=== PATIENT | female | born 2000 | race Hispanic/Latino ===

== ENCOUNTER 2023-04-13 07:10 | Inpatient (IN) | payer SELFPAY ==
[2023-04-13] VITALS (32 sets, daily range): BP systolic 91–129; BP diastolic 52–86; PULSE 75–110; TEMP 36.2–37.1; O2SAT 96–100; BMI 39.7
[2023-04-13] MEDS: Lactated Ringers 1,000 ML 50 ML IV (08:00)
[2023-04-13 08:37] LABS: Absolute Neutrophil Count 4.9 X10^3/uL (2.0-7.7); Basophil# 0.04 X10^3/uL; Basophil% 0.5 % (0-1); Eosinophil# 0.18 X10^3/uL; Eosinophils% 2.4 % (0-5); Hematocrit 38.8 % (37-47); Hemoglobin 13.1 g/dL (12.0-15.0); Lymphocyte % 24.9 % (19-41); Mean Corp Hgb Conc 33.8 g/dL (32-36); Mean Corpuscular Hgb 31.6 pg (27.0-32.0); Mean Corpuscular Volume 93.5 fL (81-99); Mean Platelet Vol. 12.2 fl (6.2-12.0); Monocyte# 0.53 X10^3/uL; NRBC Flagged by Analyzer 0 % (0-5); Neutrophil # 4.87 X10^3/uL (2.7-7.7); Neutrophil % 63.9 % (47-70); Platelet Count 169 K/mm3 (150-450); RBC Distribution Width CV 13.4 % (11.6-14.6); RBC Distribution Width SD 45.6 fl (35.1-43.9); Red Blood Count 4.15 M/mm3 (4.2-5.4); White Blood Count 7.6 K/mm3 (4.4-11.0)
[2023-04-13 09:14] LABS: Syphilis Antibodies Non-reactive
[2023-04-13] MEDS: 0.9% Normal Saline Single 100 ML IV.SOLN. INTRA-UTER (09:39)
[2023-04-13] MEDS: Oxytocin 15 Units/NS 250ml 15 UNITS/250 ML IV.SOLN 2 UNITS IV (10:00)
[2023-04-13 12:57] LABS: Amphetamine Urine VISTA NEGATIVE (<1000 ng/mL); Barbiturate Urine VISTA NEGATIVE (< 200 ng/mL); Benzodiazepine Urine VISTA NEGATIVE (< 200 ng/mL); Cocaine Urine VISTA NEGATIVE (< 300 ng/mL); Ecstacy Urine VISTA NEGATIVE (< 500 ng/mL); Methadone Urine VISTA NEGATIVE (< 300 ng/mL); PCP Urine VISTA NEGATIVE (< 25 ng/mL); THC Urine VISTA NEGATIVE (< 50 ng/mL); Vista UDS pH Range 6
--- NOTE | 2023-04-13 13:20 | PCM.HP.OB ---
HPI - General General Date of Admission: 04/13/23 HPI Narrative KOBE EDWARDS, is a 22 F who presents Maternal Data Information Final VICKI: 04/18/23 Gestational age: 39&2 PFSH PFS Medical History (Updated 04/13/23 @ 13:[address] Rodney Alba MD) Chlamydia infection affecting Home Medications [id number] 1 mg tablet 1 tab PO DAILY Check with primary doctor 04/13/23 [History Last Taken Unknown] Allergy/AdvReac Type Severity Reaction Status Date / Time No Known Allergies Allergy Verified 04/13/23 08:27 Social History Smoking Status: Never smoker History Elective abortions Hx Para 1 Spontaneous abortions Hx # Term Pregnancies Ectopic pregnancies Hx # Pregnancies Multiple births # of living children NST FHR Rate Baby A Baseline: 140 Variability:: Moderate Decelerations:: None Uterine Activity:: Not tracing well Vital Signs Vital Signs Vital Signs: 04/13/23 07:42 04/13/23 07:42 04/13/23 07:42 Temperature 97.3 F L Temperature Source Pulse Rate 76 Blood Pressure 128/84 H BP Systolic 128 BP Diastolic 84 04/13/23 07:42 04/13/23 09:29 04/13/23 09:29 Temperature Temperature Source Temporal Pulse Rate 80 Blood Pressure 107/54 L BP Systolic 107 BP Diastolic 54 04/13/23 09:29 04/13/23 09:29 04/13/23 10:39 Temperature 97.2 F L Temperature Source Temporal Pulse Rate Blood Pressure 108/61 BP Systolic 108 BP Diastolic 61 04/13/23 10:39 04/13/23 12:04 04/13/23 12:05 Temperature Temperature Source Temporal Pulse Rate 82 Blood Pressure 93/58 L BP Systolic 93 BP Diastolic 58 04/13/23 12:05 04/13/23 12:04 Temperature 97.2 F L Temperature Source Pulse Rate 90 Blood Pressure BP Systolic BP Diastolic Weight Weight: 197 lb Body Mass Index (BMI) 39.7 Physical Exam Const alert, oriented x3 and no apparent distress Chest inspection of chest normal Resp normal respiratory effort GI soft to palpation, non-tender and non-distended Inspection: gravid external exam normal Narrative: cvx - 4/70/3, AROM clear fluid Labs Labs Labs: Blood Type O POSITIVE Antibody Screen NEGATIVE Hct 38.8 % (37-47) Hgb 13.1 g/dL (12.0-15.0) Syphilis Total Ab Non-reactive See [facility] H&P Assessment & Plan (1) Elective induction of labor planned: COMMENT: @ 39&2 PLAN: ADmit to L&D Continue induction - s/p martins & AROM. On pitocin EFW- less than 4500g, patient with adequate pelvis GBS negative Pain - epidural as desired Routine care
[2023-04-13] MEDS: LACTATED RINGERS 500 ML 999 ML IV ×2 (14:51→19:35)
[2023-04-13] MEDS: fentaNYL-bupivacaine (epidural) 100 ML BAG EPIDURAL ×2 (15:34→19:54)
[2023-04-13] MEDS: Ondansetron 4 MG/2 ML Vial IV (20:41)
[2023-04-13] MEDS: Lactated Ringers 1,000 ML 200 ML IV (22:15)
[2023-04-13] MEDS: Amnioinfusion- 0.9% NS 1,000 ML IV.SOLN. 1000 ML INTRA-UTER (22:59)
[2023-04-13] MEDS: Oxytocin 15 Units/NS 250ml 15 UNITS/250 ML IV.SOLN 83 UNITS IV (23:22)
[2023-04-13] MEDS: Oxytocin 10 UNITS/ML Vial IM (23:22)
--- NOTE | 2023-04-13 23:31 | EX.PCM.OBRPT ---
Maternal Data Information Final VICKI: 04/18/23 Gestational age: 39&2 Vaginal Delivery Maternal Presentation Maternal Presentation: Elective Induction Type of Induction: Pitocin, Ron Bulb and Amniotomy Operative Information Date of Procedure: 04/13/23 Pre-Operative Diagnosis: Maternal request for elective induction Post-Operative Diagnosis: Same Surgery / Procedure Performed: Spontaneous Vaginal Delivery Type of Anesthesia: Epidural Estimated Blood Loss: 300ml Findings Description of Procedure: Patient prepped & draped when C/C/+2. She pushed well to deliver the head. head gently guided to allow delivery of anterior and posterior shoulders. No excess traction placed on head. Body delivered and 3VC clamped & cut in delayed fashion. Placenta delivered with gentle traction and good uterine tone obtained. Presentation: ELINOR Amniotic Membrane Rupture Type: Artificial Amniotic Fluid Description: Clear Placental Delivery Description: Expressed Placenta Disposition: [facility] Specimen(s) Removed: Placenta Cord Vessel Description: 3 Vessels Cord Entanglement: None A Gender: Male (1 minute): 7 (5 minute): 8 Delayed Cord Clamping: Yes Post Vaginal Delivery Medications Given After Delivery: IV Pitocin and IM Pitocin Episiotomy Description: None Laceration: None Complication Complications: None
[2023-04-14] VITALS (14 sets, daily range): BP systolic 93–124; BP diastolic 50–81; PULSE 69–97; RESP 16–18; TEMP 36–36.9; O2SAT 97–100
--- NOTE | 2023-04-14 08:36 | PN.OBGYN_ITS ---
Subjective Subjective Patient seen at bedside. Feeling good. Denies any pain. Ambulating and voiding without difficulty. Lochia decreasing. Interpretation services utilized Objective Data Objective Data Vital Signs: Vital Signs Temp Pulse Resp BP Pulse Ox O2 Del Method 97.3 F L 89 16 100/64 97 Room Air 04/14/23 08:10 04/14/23 08:10 04/14/23 08:10 04/14/23 08:10 04/14/23 08:10 04/14/23 08:10 Oxygen Delivery Method Room Air Weight: 197 lb Body Mass Index (BMI) 39.7 Intake & Output: Intake and Output for Last 24 Hours 04/12/23 04/13/23 04/14/23 23:59 23:59 23:59 Intake Total 2353.80 / 2353.80 250 / 250 Output Total 500 / 500 Balance 1853.80 / 1853.80 250 / 250 Lab / Micro Data Result Diagrams: 04/13/23 08:00 Labs: Laboratory Results - last 24 hr 04/13/23 08:00: WBC 7.6, RBC 4.15 L, Hgb 13.1, Hct 38.8, MCV 93.5, MCH 31.6, MCHC 33.8, RDW Std Deviation 45.6 H, RDW Coeff of [place] 13.4, Plt Count 169, MPV 12.2 H, Immature Gran % (Auto) 1.300 H, Neut % (Auto) 63.9, Lymph % (Auto) 24.9, [place] % (Auto) 7.0, Eos % (Auto) 2.4, Baso % (Auto) 0.5, Absolute Neuts (auto) 4.9, Absolute Lymphs (auto) 1.90, Nucleated RBC % 0 04/13/23 08:00: Blood Type O POSITIVE, Antibody Screen NEGATIVE 04/13/23 08:00: Syphilis Total Ab Non-reactive 04/13/23 12:10: Urine Opiates Screen NEGATIVE, Urine Methadone Screen NEGATIVE, Ur Barbiturates Screen NEGATIVE, Ur Phencyclidine Scrn NEGATIVE, Ur Amphetamines Screen NEGATIVE, MDMA (Ecstasy) Screen NEGATIVE, U Benzodiazepines Scrn NEGATIVE, Urine Cocaine Screen NEGATIVE, U Cannabinoids Screen NEGATIVE, Ur Drug Screen Comment ROS Eyes Eyes: Denies blurry vision, change in vision or spots in vision ENT HEENT: Denies dizziness or headache(s) Cardiovascular Cardiovascular: Denies abdominal pain, chest pain or dyspnea Respiratory/Chest Respiratory/Chest: Denies cough, dyspnea, shortness of breath at rest or shortness of breath with exertion Gastrointestinal Gastrointestinal: Denies abdominal pain, diarrhea or vomiting Genitourinary Genitourinary: Denies change in urinary stream, difficulty urinating or dysuria Musculoskeletal Musculoskeletal: Reports none Integumentary Integumentary: Denies rash Neurologic Neurologic: Denies dizziness, headache(s), memory loss or weakness Physical Exam Const alert and no apparent distress General Appearance: cooperative and comfortable Exam Limitations: no limitations HEENT normocephalic Eyes General Eye: normal appearance of both eyes Neck full ROM General: normal visual inspection Chest Chest: symmetrical chest wall rise Resp normal respiratory effort and normal air movement Effort and Inspection: symmetric chest movement Auscultation: clear to auscultation bilaterally Cardio regular rate and regular rhythm GI normal to inspection, nondistended, normoactive bowel sounds Back/Spine normal ROM Extremity full ROM and no calf tenderness General Extremity: normal exam except as noted Skin no rashes or lesions noted Neuro CN's II-XII intact bilaterally Psych mental status grossly normal Assessment & Plan (1) (spontaneous vaginal delivery): (2) Language barrier: (3) Care and examination of lactating mother: PLAN: Plan PPD 1 support Routine care Pain control Anticipate discharge home tomorrow
--- NOTE | 2023-04-14 09:43 | NURSING ---
Ladle Liner Helper IPAD used for all teaching
--- NOTE | 2023-04-14 18:50 | CASEMGMT ---
Social Work Assessment Labor and Delivery Unit Patient Address: [address] [place] [id number] Phone number: [phone] Date of Referral: 04/13/2023 Time of Referral: [id number] Date of Intervention: 04/14/2023 Time of Intervention: Approximately 1730 Reason for Referral: Maternal history of THC History obtained from: Medical records and mother of baby (MOB) Yessenia Bonilla; father of baby (FOB) Kizzy Baires present for part of conversation. Ms Access Database Developer iPad used with sustainment logistics analyst Caitlyn #[id number] Household composition: MOB and FOB report to have their own apartment. Denies anybody else living in the home and denies any safety concerns. Patient's parent/guardian status: DELFINO is a 22-year-old female (from [place]) involved with the FOB who is 26 years old and for the last 2 years. MOB has been in [facility] for 2 years and the FOB for 5 during private conversation MOB denies any history of safety concerns or domestic violence in this relationship. is the first child for parents together with a little girl being born names Joel Garcia (04/13/2023). MOB indicates a history of in [place] about 11 years ago. Medical History: DELFINO is 2, para 1 now 2 after delivering to this admission. care received through the [facility]. 's Apgars were 7 and 8 at 1 and 5 minutes of life respectively. MOB admits to history of 1 other and delivery, 11 years ago. DELFINO would have been a minor with this timeframe. The specifics of this loss and not further discussed. Educational Status: MOB reports a high school education in [place]. Denies any concerns with reading or writing. Primary language is [place]. Financial Status: MOB currently stays at home. FOB works full-time job. MOB and FOB deny any concerns about paying bills they will do not have any current insurance and would appreciate assistance with applying for Medicaid. Infant Supplies: MOB and FOB report to have all necessary supplies to care for the infant including safe sleep space in the form of a pack and play and car seat. MOB is breast-feeding reports this is going well. Childcare/Caregiver(s): MOB and FOB will be the primary caregivers. Transportation: Transportation is reported to be adequate. Programs/Agencies Involved: MOB reports to have WIC. Verbally agrees to help me grow. And is interested in applying for Medicaid. Children Services/Legal Issues: Denies any legal concerns or history of children services. Behavioral Health Issues: Mental Health History: MOB denies any history of depression, anxiety or other emotional health issues. Denies any significant depression after of first child. Denies any history of suicidal ideations, planning or intent. Substance Use History: MOB admits to history of some cocaine use over a year and a half ago. Denies addiction or dependence on this. Denies any cocaine use during the . Reports infrequent marijuana use with last use 4 months ago. Denies any other illicit substance use history. Family History: Denies any family history. Drug Screens: Drug screen negative upon admission on 04/13/2023. 's urine drug screen is also negative. Meconium is pending. Family/Social Stressors: Communication is at times of stress or due to primary language as [place]. No health insurance at this time. Support Systems: MOB reports FOB is primary support system. Reports to have a best friend who lives locally and is [place]-speaking and [place]-speaking. Depression/Shaken Baby/Safe Sleeping: Reviewed safe sleeping and shaking baby prevention with both parents. Reviewed mood and anxiety disorders, and that both parents are at risk. ASSESSMENT: Met with MOB in room, along with the FOB, introducing to self and social work role. Both MOB and FOB engaged in conversation. The female best friend did arrive to the room and was present for part of the conversation but did remove self from the room along with the FOB when this telegraphic typewriter operator needed to have a private conversation. No concerns with either person stepping out of the room when requested. MOB denies any safety concerns at home. MOB and FOB report to have all necessary supplies and deny concerns about basic needs. MOB and FOB educated to potential involvement with children services should meconium drug screen come back positive. Offered opportunity to ask questions. Emotional support offered. Provided resource information on mood and anxiety disorders and the written language of [place]. Also provided a [facility] resource list in [place] and [place]. Medicaid application in [place] provided. MOB and FOB agreed to a referral to for source, the [employer] [facility] works with and assistance with applying for Medicaid. Verbally agreed to help me grow referral. Ssafe Plan of Care for infant related to substance use: MOB and FOB educated to abstain from breast-feeding should MOB use marijuana in the future. MOB reports plan to abstain from marijuana denies any intent to use this again in the future. FOB denies usage or history of usage of marijuana. PLAN: MOB and will discharge home when ready. Community resource information provided in their primary language. Monitor for meconium drug screen results. Referral to for source and help me grow to be completed. No other services requested or indicated. -MAGDA Baca, SAMANTHA *This note was generated with [employer] dictation software. It may contain incorrect words, spelling, and punctuation that were not noted in review of the chart prior to signing*
[2023-04-15 02:00] VITALS: BP 103/54; PULSE 88; RESP 16; TEMP 36.6; O2SAT 96
--- NOTE | 2023-04-15 09:05 | PCM.PN.OB ---
Subjective Subjective Patient seen at bedside. Denies pain. Ambulating and voiding without difficulty. independently. Desires discharge home today. Interpretation services utilized Objective Data Objective Data Vital Signs: Vital Signs Temp Pulse Resp BP Pulse Ox O2 Del Method 97.9 F 88 16 103/54 L 96 Room Air 04/15/23 02:00 04/15/23 02:00 04/15/23 02:00 04/15/23 02:00 04/15/23 02:00 04/15/23 02:00 Oxygen Delivery Method Room Air Weight: 197 lb Body Mass Index (BMI) 39.7 Intake & Output: Intake and Output for Last 24 Hours 04/13/23 04/14/23 04/15/23 23:59 23:59 23:59 Intake Total 2353.80 / 2353.80 250 / 250 Output Total 500 / 500 Balance 1853.80 / 1853.80 250 / 250 Lab / Micro Data Result Diagrams: 04/13/23 08:00 ROS Eyes Eyes: Denies blurry vision, change in vision or spots in vision ENT HEENT: Denies dizziness or headache(s) Cardiovascular Cardiovascular: Denies abdominal pain, chest pain or dyspnea Respiratory/Chest Respiratory/Chest: Denies cough, dyspnea, shortness of breath at rest or shortness of breath with exertion Gastrointestinal Gastrointestinal: Denies abdominal pain, diarrhea or vomiting Genitourinary Genitourinary: Denies change in urinary stream, difficulty urinating or dysuria Musculoskeletal Musculoskeletal: Reports none Integumentary Integumentary: Denies rash Neurologic Neurologic: Denies dizziness, headache(s), memory loss or weakness Physical Exam Const alert and no apparent distress General Appearance: cooperative and comfortable Exam Limitations: no limitations HEENT normocephalic Eyes General Eye: normal appearance of both eyes Neck full ROM General: normal visual inspection Chest Chest: symmetrical chest wall rise Resp normal respiratory effort and normal air movement Effort and Inspection: symmetric chest movement Auscultation: clear to auscultation bilaterally Cardio regular rate and regular rhythm GI normal to inspection, nondistended, normoactive bowel sounds Back/Spine normal ROM Extremity full ROM and no calf tenderness General Extremity: normal exam except as noted Skin no rashes or lesions noted Neuro CN's II-XII intact bilaterally Psych mental status grossly normal Assessment & Plan (1) Care and examination of lactating mother: (2) Language barrier: (3) (spontaneous vaginal delivery): PLAN: PPD 2 Routine care support D/C home with follow up in office
--- NOTE | 2023-04-15 09:15 | DCINST_ITS ---
Discharge Instructions Diet Discharge Diet: No restrictions Activity Discharge Activity: Return to Normal Activity, May Shower and May Take a Tub Bath May resume sexual activity in: 4-6 weeks Weight Bearing Status: Weight bearing as tolerated Dressing / Incision Call your doctor if you observe: Inability to urinate, Using more than 1 pad per hour, Shortness of breath, Dizziness, Swelling in the ankles, Chest pain, Calf discomfort and Uncontrolled pain Follow Up Care When: Within 10 days Test Results: Test results from this visit will be discussed in further detail at your follow- up appointment, if applicable. Discharge Plan Admission Admit Date/Time: 04/13/23 07:10 Primary Reason for Your Visit: Labor and Delivery Attending Provider: Rodney Alba Primary Care Provider: Care Physician,Lizbet Primary Discharge Orders/Prescriptions Prescriptions: Continued vtjuevov-[id number] 1 mg Tablet 1 tab PO DAILY Referrals / Follow Up: Care Physician,No Primary [Primary Care Provider] - Disposition Disposition (needs filled in before D/C Order can be placed): Home, Self Care
[2023-04-15 10:02] VITALS: BP 115/58; PULSE 82; RESP 16; TEMP 36.8; O2SAT 97
[2023-04-15] MEDS: Ibuprofen 600 MG Tablet PO (10:08)
--- NOTE | 2023-04-21 19:05 | CASEMGMT ---
Social work Labor and delivery unit Email has been sent to for source, contract company [facility] works with the Medicaid applications.? Email sent encrypted with patient and mother of baby information, so that for source can reach out to family and assist with application. Help me grow referral submitted through the [facility] assisted care web-based referral system.? No other services requested or indicated other than monitoring for meconium drug screen results. -KATY Baca, ACCOUNT CLERK. *This note was generated with [employer] dictation software. It may contain incorrect words, spelling, and punctuation that were not noted in review of the chart prior to signing*
--- NOTE | 2023-05-02 19:11 | CASEMGMT ---
Social Work Labor and Delivery unit Meconium drug screen results are back and negative for any drugs of abuse. No further referrals indicated. -KATY Baca, FIELD NURSE CASE MANAGER
== END 2023-04-15 10:40 | disposition home or self-care (01) | DRG 807 ==
PROVIDERS: Obstetrics & Gynecology; Admitting Provider Obstetrics & Gynecology; Visit Provider Obstetrics & Gynecology
DX: O80 Encounter for full-term uncomplicated delivery (principal); Z37.0 Single live birth; Z3A.39 39 weeks gestation of pregnancy
CPT/HCPCS: 59025; 59050; 80307; 85025; 86780; 86850; 86900; 86901; 99221; J7030; J7120; G0378; J2405